=== PATIENT | female | born 1935 | race Caucasian/White ===

== ENCOUNTER 2023-10-20 13:18 | Inpatient (IN) | payer MEDICARE, OTHER ==
[~2023-10-20] VITALS: Ht 147.3 cm; Wt 81.6 kg
[2023-10-20] VITALS (10 sets, daily range): BP systolic 128–153; BP diastolic 66–86; TEMP 97.5–98.8; O2SAT 91–100
[~2023-10-20 13:18] MED LIST: AMLO-213 PO; ARIP5TAB10 PO; ESCI10TA PO; ESOM40CA PO; EZET10TA16 PO; FLUT1DIS28 IH; HYDR1TAB PO; INSU100V7 SQ; MEMA5TAB PO; METO10TA3 PO; NYST15CR TP; OLOP2.5D12 OP; PRAV40TA PO; SITA100T PO; SOLI5TAB2 PO; VALS80TA2 PO
[2023-10-20] MEDS ORDERED: ONDANSETRON HCL/PF 4 MG/2 ML VIAL ONE (14:06)
[2023-10-20] MEDS: IV NS 0.9% 500 ML BAG IV ONE (14:10)
[2023-10-20] MEDS: ONDANSETRON HCL/PF 4 MG/2 ML VIAL IVP ONE (14:10)
[2023-10-20 14:16] LABS: ALANINE AMINOTRANSFERASE 24 U/L (12-78); ALBUMIN 3.5 g/dL (3.4-5.0); ALKALINE PHOSPHATASE 116 U/L (46-116); ASPARTATE AMINOTRANSFERASE 158 U/L (15-37); BILIRUBIN,DIRECT 0.1 mg/dL (0.0-0.2); BILIRUBIN,TOTAL 0.5 mg/dL (0.2-1.0); CALCIUM, SERUM 10.4 mg/dL (8.5-10.1); CARBON DIOXIDE 14 mmol/L (21-32); CHLORIDE 106 mmol/L (98-107); CREATININE 1.9 mg/dL (0.6-1.3); GLUCOSE 262 mg/dL (74-106); LIPASE 116 U/L (16-77); POTASSIUM 5.7 mmol/L (3.5-5.1); SODIUM SERUM 138 mmol/L (136-145); TOTAL PROTEIN, SERUM 7.5 g/dL (6.4-8.2); UREA NITROGEN, BLOOD 41 mg/dL (7-18)
[2023-10-20 14:26] LABS: BASOPHILS % (AUTO) 0.5 % (0.0-2.0); EOSINOPHILS # (AUTO) 0.1 K/uL (0.0-0.7); EOSINOPHILS % (AUTO) 1.8 % (0.0-6.0); HEMATOCRIT 35 % (33-45); HEMOGLOBIN 11.4 g/dL (11.5-14.8); LYMPHOCYTES % (AUTO) 13.3 % (20.0-44.0); MEAN CORPUSCULAR HEMOGLOBIN 30 PG (26.0-33.0); MEAN CORPUSCULAR HGB CONC 33 g/dl (31.0-36.0); MEAN CORPUSCULAR VOLUME 92 fL (82-100); MONOCYTES # (AUTO) 0.3 K/uL (0.1-1.30); MONOCYTES % (AUTO) 4.2 % (2.0-12.0); NEUTROPHILS # (AUTO) 5.7 K/uL (1.8-8.9); NEUTROPHILS % (AUTO) 80.2 % (43.0-81.0); PLATELET COUNT (AUTO) 132 K/uL (150-450); RED BLOOD CELL COUNT(AUTO) 3.79 MIL/uL (4.0-5.2); RED CELL DISTRIBUTION WIDTH 14.3 % (11.5-15.0); WHITE BLOOD COUNT (AUTO) 7.2 K/uL (4.3-11.0)
[2023-10-20] MEDS: ENOXAPARIN SODIUM 80 MG/0.8 ML DISP.SYRIN SQ ONE (15:15)
[2023-10-20] MEDS: ASPIRIN 325 MG TABLET PO ONE (15:15)
[2023-10-20] MEDS: SODIUM BICARBONATE SYR 50 MEQ/50 ML DISP.SYRIN IV ONE (15:16)
[2023-10-20] MEDS ORDERED: EMPA25TA PO (15:16)
[2023-10-20] MEDS ORDERED: ERGO500093 PO (15:16)
[2023-10-20] MEDS ORDERED: SITA1TAB2 PO (15:16)
[2023-10-20] MEDS ORDERED: ATOR20TA PO (15:16)
[2023-10-20] MEDS ORDERED: INSU200I4 SQ (15:16)
[2023-10-20] MEDS ORDERED: ISOS60TA72 PO (15:16)
[2023-10-20] MEDS ORDERED: GLIM4TAB37 PO (15:16)
[2023-10-20] MEDS ORDERED: INSU100I4 SQ (15:16)
[2023-10-20] MEDS ORDERED: KETO15CR2 TP (15:16)
[2023-10-20] MEDS ORDERED: DEXL60CA3 PO (15:16)
[2023-10-20] MEDS ORDERED: OLOP2.5D12 EACHEYE (15:16)
[2023-10-20] MEDS ORDERED: RIVA10TA PO (15:16)
[2023-10-20] MEDS ORDERED: FURO-145 PO (15:16)
[2023-10-20] MEDS: SODIUM POLYSTYRENE SULFONATE 15 G/60 ML BOTTLE PO ONE (15:25)
[2023-10-20] MEDS: ALBUTEROL FS 2.5 MG/3 ML VIAL.NEB NEB ONE (15:30)
[2023-10-20] MEDS ORDERED: Z GUARD REMEDY 4 OZ OINT TP PRN (17:00)
[2023-10-20] MEDS ORDERED: ACETAMINOPHEN 325 MG TABLET PO PRN (17:00)
[2023-10-20] MEDS ORDERED: MAG HYDROX/AL HYDROX/SIMETH 30 ML UDC PO PRN (17:00)
[2023-10-20] MEDS ORDERED: MAGNESIUM HYDROXIDE 30 ML UDC PO PRN (17:00)
[2023-10-20] MEDS ORDERED: *INSULIN REGULAR(HUMULIN R)HUM 100 UNIT/ML VIAL SQ PRN (17:30)
[2023-10-20] MEDS ORDERED: DEXTROSE 50%-WATER 50 ML DISP.SYRIN IV PRN (17:30)
[2023-10-20] MEDS: METOPROLOL TARTRATE 25 MG TABLET PO SCH (18:46)
[2023-10-20] MEDS: INSULIN REGULAR, HUMAN 100 UNIT/ML 3 ML VIAL SQ PRN (18:48)
[2023-10-20] MEDS: BLOOD SUGAR DIAGNOSTIC 1 EACH STRIP VI SCH (18:49)
[2023-10-20] MEDS: IV NS 0.9% 1,000 ML IV PRN (19:24)
[2023-10-20] MEDS: ATORVASTATIN 10 MG TABLET PO SCH (21:27)
[2023-10-20] MEDS: MORPHINE SULFATE INJ 2 MG/ML DISP.SYRIN IV PRN (23:13)
[2023-10-20] MEDS: LORAZEPAM INJ 2 MG/ML VIAL IV ONE (23:45)
[2023-10-20 23:51] LABS: APPEARANCE,URINE CLOUDY (CLEAR); COLOR,URINE YELLOW (YELLOW); PROTEIN,URINE NEGATIVE (NEGATIVE); UGLUCOSE TRACE mg/dL (NEGATIVE)
[2023-10-20 23:52] LABS: ADD URINE CULTURE YES; BACTERIA,URINE Rare /HPF (None Seen); BILIRUBIN,URINE NEGATIVE (NEGATIVE); BLOOD, URINE 2+ Ery/uL (NEGATIVE); KETONES,URINE NEGATIVE (NEGATIVE); LEUKOCYTE ESTERASE ,URINE 1+ (NEGATIVE); NITRITE, URINE POSITIVE (NEGATIVE); RBC,URINE 21-50 /HPF (0-2); SQUAMOUS EPITHELIAL CELL,UR Moderate /HPF (None Seen); UROBILINOGEN,URINE 0.2 EU/dL (0.2)
[2023-10-21] VITALS (26 sets, daily range): BP systolic 84–139; BP diastolic 57–86; TEMP 97.6–98.2; O2SAT 93–100
[2023-10-21 00:56] LABS: MAGNESIUM 1.8 mg/dL (1.8-2.4); PHOSPHORUS 3.8 mg/dL (2.5-4.9)
[2023-10-21] MEDS: ENOXAPARIN SODIUM 80 MG/0.8 ML DISP.SYRIN SQ SCH (03:22)
[2023-10-21 04:36] LABS: BASOPHILS % (AUTO) 0.3 % (0.0-2.0); EOSINOPHILS # (AUTO) 0.1 K/uL (0.0-0.7); EOSINOPHILS % (AUTO) 1.8 % (0.0-6.0); HEMATOCRIT 32 % (33-45); HEMOGLOBIN 10.6 g/dL (11.5-14.8); LYMPHOCYTES # (AUTO) 0.7 K/uL (0.8-4.8); LYMPHOCYTES % (AUTO) 11.7 % (20.0-44.0); MEAN CORPUSCULAR HEMOGLOBIN 30 PG (26.0-33.0); MEAN CORPUSCULAR HGB CONC 33 g/dl (31.0-36.0); MEAN CORPUSCULAR VOLUME 91 fL (82-100); MONOCYTES # (AUTO) 0.5 K/uL (0.1-1.30); MONOCYTES % (AUTO) 7.7 % (2.0-12.0); NEUTROPHILS # (AUTO) 4.9 K/uL (1.8-8.9); NEUTROPHILS % (AUTO) 78.5 % (43.0-81.0); PLATELET COUNT (AUTO) 123 K/uL (150-450); RED BLOOD CELL COUNT(AUTO) 3.53 MIL/uL (4.0-5.2); RED CELL DISTRIBUTION WIDTH 14.3 % (11.5-15.0); WHITE BLOOD COUNT (AUTO) 6.2 K/uL (4.3-11.0)
[2023-10-21 04:55] LABS: ALANINE AMINOTRANSFERASE 35 U/L (12-78); ALBUMIN 2.7 g/dL (3.4-5.0); ALKALINE PHOSPHATASE 104 U/L (46-116); ASPARTATE AMINOTRANSFERASE 269 U/L (15-37); BILIRUBIN,TOTAL 0.4 mg/dL (0.2-1.0); CALCIUM, SERUM 9.1 mg/dL (8.5-10.1); CARBON DIOXIDE 16 mmol/L (21-32); CHLORIDE 112 mmol/L (98-107); CREATININE 1.6 mg/dL (0.6-1.3); GLUCOSE 283 mg/dL (74-106); LIPASE 63 U/L (16-77); MAGNESIUM 1.8 mg/dL (1.8-2.4); PHOSPHORUS 3.8 mg/dL (2.5-4.9); POTASSIUM 5.6 mmol/L (3.5-5.1); SODIUM SERUM 139 mmol/L (136-145); TOTAL PROTEIN, SERUM 6.3 g/dL (6.4-8.2); UREA NITROGEN, BLOOD 34 mg/dL (7-18)
[2023-10-21] MEDS: GLIMEPIRIDE 4 MG TABLET PO SCH (08:49)
[2023-10-21] MEDS: ASPIRIN 81 MG TAB.CHEW PO SCH (08:49)
[2023-10-21] MEDS: EMPAGLIFLOZIN 25 MG TABLET PO SCH (08:49)
[2023-10-21] MEDS: MEMANTINE HCL 5 MG TABLET PO SCH (08:49)
[2023-10-21] MEDS: ESCITALOPRAM OXALATE (10 MG) 10 MG TABLET PO SCH (08:49)
[2023-10-21] MEDS: ISOSORBIDE MONONITRATE (30MG) 30 MG TAB.SR.24H PO SCH (08:49)
[2023-10-21] MEDS: ARIPIPRAZOLE 5 MG TABLET PO SCH (08:49)
[2023-10-21] MEDS: SODIUM POLYSTYRENE SULFONATE 15 G/60 ML BOTTLE PO ONE (08:54)
[2023-10-21] MEDS ORDERED: VALSARTAN 80 MG TABLET PO SCH (09:00)
[2023-10-21] MEDS: METOPROLOL TARTRATE 25 MG TABLET PO SCH (09:00)
[2023-10-21] MEDS: ONDANSETRON HCL/PF 4 MG/2 ML VIAL IVP PRN (10:39)
[2023-10-21 14:24] LABS: CARBON DIOXIDE 20 mmol/L (21-32); CHLORIDE 111 mmol/L (98-107); CREATININE 1.7 mg/dL (0.6-1.3); GLUCOSE 252 mg/dL (74-106); SODIUM SERUM 140 mmol/L (136-145); UREA NITROGEN, BLOOD 33 mg/dL (7-18)
[2023-10-21 19:29] LABS: CREATININE, URINE 77.2 MG/DL (30.0-125.0); URINE TOTAL PROTEIN 24.8 mg/dL (0-11.9)
== END 2023-10-21 22:10 | disposition short-term general hospital (02) | DRG 280 ==
LOC: ER 13:32 → TELE-TD 15:56 → ICU 18:06
PROVIDERS: ADMIT Internal Medicine; ATTEND Internal Medicine
DX: I21.4 Non-ST elevation (NSTEMI) myocardial infarction (principal); N17.0 Acute kidney failure with tubular necrosis; L03.116 Cellulitis of left lower limb; L03.115 Cellulitis of right lower limb; E87.20 Acidosis, unspecified; I25.10 Atherosclerotic heart disease of native coronary artery without angina pectoris; D64.9 Anemia, unspecified; E78.5 Hyperlipidemia, unspecified; E87.5 Hyperkalemia; M89.8X9 Other specified disorders of bone, unspecified site; Z79.01 Long term (current) use of anticoagulants; Z79.4 Long term (current) use of insulin; L85.3 Xerosis cutis; Z79.84 Long term (current) use of oral hypoglycemic drugs; Z85.038 Personal history of other malignant neoplasm of large intestine; Z93.3 Colostomy status; I87.2 Venous insufficiency (chronic) (peripheral); R74.01 Elevation of levels of liver transaminase levels; K57.30 Diverticulosis of large intestine without perforation or abscess without bleeding; K80.20 Calculus of gallbladder without cholecystitis without obstruction; K43.5 Parastomal hernia without obstruction or gangrene; I12.9 Hypertensive chronic kidney disease with stage 1 through stage 4 chronic kidney disease, or unspecified chronic kidney disease; E11.22 Type 2 diabetes mellitus with diabetic chronic kidney disease; N18.9 Chronic kidney disease, unspecified
CPT/HCPCS: 36415; 71045-TC; 76770-TC; 80048-TC; 80053-TC; 80076-TC; 81001; 82570-TC; 82962-TC; 83690-TC; 83735-TC; 84100-TC; 84132-TC; 84300-TC; 84443-TC; 84484-TC; 85025-TC; 87086-TC; 93307-TC; A4223; G0378; J1650; J1815; J2060; J2270; J2405; J3490; J7030